=== PATIENT | male | born 2000 | race Caucasian/White ===

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

== ENCOUNTER 2020-05-26 16:49 | Emergency (ER) | payer SELFPAY ==
[2020-05-26 18:51] VITALS: BP 131/68
== END 2020-05-26 18:51 | disposition home or self-care (01) | DRG 204 ==
LOC: ED 16:49
DX: R05 Cough (principal); J02.9 Acute pharyngitis, unspecified; R09.81 Nasal congestion; Z20.828 Contact with and (suspected) exposure to other viral communicable diseases

== ENCOUNTER 2020-11-16 15:42 | Emergency (ER) | payer SELFPAY ==
[2020-11-16] MEDS ORDERED: AMOX/K CLAV875 M1 PO (17:51)
[2020-11-16 18:02] VITALS: BP 131/87
== END 2020-11-16 18:02 | disposition home or self-care (01) | DRG 153 ==
LOC: ED 15:42
DX: J06.9 Acute upper respiratory infection, unspecified (principal); Z20.822 Contact with and (suspected) exposure to COVID-19